=== PATIENT | female | born 1980 | race Caucasian/White ===

== ENCOUNTER 2024-03-06 18:52 | Emergency (ER) | payer OTHER, SELFPAY ==
[2024-03-06 19:15] VITALS: BP 154/87; PULSE 88; RESP 18; TEMP 36.6; O2SAT 97; BMI 31.3
--- NOTE | 2024-03-06 19:39 | EXP.UTC ---
Discharge Plan Disposition Patient Disposition: Home, Self-Care Condition: Good Prescriptions Prescriptions: New prednisone 10 mg tablet 10 mg PO BID 3 Days Qty: 6 0RF sulfamethoxazole-trimethoprim [Bactrim DS] 800-160 mg Tablet 1 tab PO BID Qty: 20 0RF Referrals Follow up/Referrals: Provider,Referral, MD [Primary Care Provider] - See instructions Activity Restrictions/Add. Instructions Additional Instructions/Restrictions: Drink plenty of fluids. Take tylenol or ibuprofen for pain or fever. Take the medications as directed. Follow up with your regular doctor. GO TO THE ER FOR ANY WORSENING SYMPTOMS The throat culture will take 3 days to complete. Please follow up to go over these results in 3 days. Clinical Impressions Clinical Impression: Pharyngitis, Exposure to methicillin resistant Staphylococcus aureus Instructions Patient Instructions: Sore Throat, DI for Pharyngitis/Tonsillopharyngitis -- Adult Discharge ED Provider: Kamron [place] [facility] General Stated complaint: sore throat Mode of Arrival: Ambulatory Source of Information: Patient Limitations: No Limitations Time Seen by Provider: 03/06/24 19:38 Description of Symptoms (Recalled from Triage Doc. by RN): Pt ate and drank after someone with staph infection. She has a sore throat. HEENT Symptoms (Recalled from RN notes): Yes Resp Symptoms (Recalled from RN notes): No Skin Symptoms (Recalled from RN notes): No MS Symptoms (Recalled from RN notes): No Functional Status (Recalled from RN notes): n/a History of Present Illness Provider Complaint: She states that she has had a sore throat and ear pain for the past 2 weeks. Her and her mother both had throat cultures that grew staph infection yesterday. She is concerned that she has the same thing. Related Data Previous Rx's Medication Instructions Recorded prednisone 10 mg tablet 10 mg PO BID 3 days #6 tabs 03/06/24 sulfamethoxazole 800 1 tab PO BID #20 tabs 03/06/24 mg-trimethoprim 160 mg tablet (Bactrim DS) Allergies Allergy/AdvReac Type Severity Reaction Status Date / Time acetaminophen [From [facility]] Allergy Mild Verified 03/06/24 19:38 hydrocodone [From [facility]CO] Allergy Mild Verified 03/06/24 19:38 Penicillins [PENICILLINS] Allergy Mild Verified 05/28/24 19:38 codeine Allergy Verified 03/06/24 19:39 Worker's Comp Is this a Worker's Comp case?: No [facility] Disclaimer: The information contained in this section may have been updated after the patient was seen, as this information can be updated by other users. Social History Smoking Status: Former smoker alcohol intake: never current occupational status: employed Travel in the last 8 weeks: None ROS Obtained: Yes All systems reviewed & no additional complaints except as documented Constitutional Constitutional: Denies chills and Denies fever(s) Eyes Eyes: Denies eye discharge ENT Ears, Nose, Mouth, and Throat: Reports as per HPI Cardiovascular Cardiovascular: Denies chest pain Respiratory Respiratory: Denies chest congestion and Reports cough Gastrointestinal Gastrointestingal: Reports nausea; Denies abdominal pain, constipation, cramping, diarrhea or vomiting Musculoskeletal Musculoskeletal: Denies arthralgias Integumentary/Breasts Skin/Breast: Denies rash Neurologic Neurologic: Denies paresthesias Physical Exam General General appearance: alert and in no apparent distress Head Head exam: atraumatic, normocephalic and normal inspection Eye Eye exam: Present normal appearance, PERRL and EOMI ENT ENT exam: Present mucous membranes moist and normal external ear exam Expanded ENT Exam TM/Canal exam: Bilateral TM: erythema and bulging Nose exam: Absent sinus tenderness Mouth exam: Present normal external inspection; Absent drooling Teeth exam: Present normal inspection Throat exam: Present tonsillar erythema, tonsillomegaly and tonsillar exudate Neck Neck exam: Present normal inspection, full ROM and trachea midline; Absent tenderness, meningismus or lymphadenopathy Chest Chest inspection: Present normal inspection and symmetric chest wall rise; Absent tenderness Respiratory Respiratory exam: Present normal lung sounds bilaterally; Absent respiratory distress, wheezes, stridor or accessory muscle use Cardiovascular Cardiovascular exam: Present regular rate and normal rhythm; Absent systolic murmur or diastolic murmur Abdominal Exam Abdominal exam: Present soft and normal bowel sounds; Absent distention, tenderness, guarding, rebound or rigidity Extremities Exam Extremities exam: Present normal inspection and normal capillary refill; Absent calf tenderness Back Exam Back exam: Present normal inspection and full ROM; Absent tenderness, CVA tenderness (R) or CVA tenderness (L) Neurological Exam Neurological exam: Present alert, oriented X3 and CN II-XII intact Psychiatric Psychiatric exam: Present normal affect and normal mood Skin Skin exam: Present warm, dry, intact and normal color Medical Decision Making Medical Records Medical records reviewed: No I reviewed the patient's medical records. Russ Inquiry Pt receiving controlled substance: No Vital Signs: 03/06/24 19:15 Temperature 97.9 F Temperature Source Oral Pulse Rate [Right Radial] 88 Respiratory Rate 18 Blood Pressure [Right Arm] 154/87 H Blood Pressure Mean [Right Arm] 109 Blood Pressure Source [Right Arm] Automatic Cuff Blood Pressure Position [Right Arm] Sitting 02 Sat by Pulse Oximetry 97 Oxygen Delivery Method Room Air
[2024-03-06] MEDS: SULFA/TRIMETHOPRIM 1 TABLET 1 EACH PO (19:50)
[2024-03-06 20:20] VITALS: BP 154/87; PULSE 88; RESP 18; TEMP 36.6; O2SAT 97
== END 2024-03-06 20:20 | disposition home or self-care (01) ==
PROVIDERS: Emergency Provider Nurse Practitioner Family
DX: J02.9 Acute pharyngitis, unspecified (principal); Z20.818 Contact with and (suspected) exposure to other bacterial communicable diseases
CPT/HCPCS: 87070; 99204; 99212; G0463

== ENCOUNTER 2024-09-02 10:46 | Emergency (ER) | payer OTHER, SELFPAY ==
--- OUTSIDE RECORDS SUMMARY | 2024-09-02 10:49 | XMS_ITS | Data Portability ---
Author Organization [facility] DAVID Cárdenas VIAN CLOSED Address [address] [place] [address] Care Team Providers Care Insurance Policy Issue Clerk Name Role Phone RADHA ALEXANDRE Ror Engineer CATHY ARTEAGA Primary Care Provider Assessment No assessment recorded. Plan of Treatment Reminders Order Date Submit Date Provider Last Modified By Organization Details Last Modified Time Details Appointments None recorded. Lab None recorded. Referral None recorded. Procedures None recorded. Surgeries None recorded. Imaging None recorded. Medication Orders minocycline 100 mg capsule 2023 024 [id number] [facility] [id number], [address] [place], [address], 4 15:52:33 fluconazole 150 mg tablet 2023 024 [facility] [id number], [address] [place], [address], 4 15:52:33 Patient TargetsNo targets recorded. Patient InstructionsNo instructions recorded. Reason for Referral None Reported. Procedures Surgical History Date Name Laterality Status Provider Name and Address Organization Details Recorded Time 4 Destruction BN Lesions completed RADHA GONZALES MD [address] [place] [address], [id number], [facility] 11/18/2023 17:28:41 Imaging Results None recorded. Procedure Notes None recorded. Medical Equipment None Reported. Allergies Allergen ID Allergen Name Allergen Category Reaction Reaction Severity Criticality Documentation Date Start Date Code Code System Note Provider Name and Address Organization Details Recorded Time [id number] Medicinal product containin g penicilli n and acting as antibacte rial agent (product) medicatio n Not available Not available Not available 11/18/2023 89453 [id number] SNOMED Leanne Ng [facility] 4 13:06:02 [id number] hydrocodo ne Not available Not available Not available Not available 11/18/2023 5489 RxNorm Leanne Ng [facility] 4 13:06:08 Medications Name Sig Start Date Stop Date Status Note LastModified by Organization Details LastModified Time fluconazole 150 mg tablet Take 1 tablet with sign of yeast infection 2023 active Not Available Not Available Not Avai lable minocycline 100 mg capsule Take 1 capsule twice a day by oral route. 2023 active Not Available Not Available Not Avai lable Vitals None Recorded Social History Question Answer Notes LastModified by Organizat ion Details LastModified Time Tobacco Smoking Status Smoker, Current Status Unknown Leanne Ng [facility] 11/18/2023 13:06:57 What Is Your Level Of Alcohol Consumption? None Information not available 11/18/2023 Sunscreen Use? No Informatio n not available 11/18/2023 Tanning Bed Use No Informati on not available 11/18/2023 What Was The Date Of Your Most Recent Tobacco Screening? 11/18/2023 Information not available 11/18/2023 Sex: Unknown Functional Status None recorded. Mental Status None recorded. Family History Relationship Description Onset Age of this Age Resolved Age Notes LastModified by Organization Details LastModified Time Paternal Aunt Malignant neoplasm of skin stahanasab Not available 11/18 13:06:49 Medical History Condition Response Other Skin Condition Y Gynecological HistoryNo gynecological history recorded. 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 L73.2 Health Concerns Section Related Observation LastModified by Organization Detai ls LastModified Time None Recorded Concern Status LastModified by Organization Details LastModified Time None Recorded Advance Directives Directive None Recorded Payers Encounter Date Sequence Insurance Name Policy Number Policy Wilson Covered Member ID Wilson Member ID Guarantor Name 11/18/2023 1 [facility] ([facility] Jerad Burch [id number] Arina Burch Notes Date Note Type Note Provider Name and Address Organization Details Recorded Time 11/18/2023 text/html 1. I think I hav e [email or web address]. - Location: Bilateral lower eyelids.- Duration: Four years.- Prior treatments: None mentioned.- REPORTS: Yellow/white spots under the eyes. Pt would like this treated. Is on cholesterol medicine per PCP.- Pt reports took 11 mo to see prior derm & was going to take another 11 mo to see her again & they were going to use a laser & it was going to be $700 (at [facility] in [place]).2. I have HS. - Location: Groin. Bilateral axillae. Bilateral IFM.- Duration: 20 years.- Current treatments: Clindamycin gel. BPO wash.- Prior treatments: PO Clindamycin, PO doxycycline (reports yeast infxn within a couple days)- REPORTS: Pt has been diagnosed with HS previously. 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 Pt would like to discuss oral medications for HS. RADHA GONZALES MD [address] [place], [address], [facility] 11/18/2023 17:34:37 OBGyn Episode No OBEpisode recorded.
--- OUTSIDE RECORDS SUMMARY | 2024-09-02 10:49 | XMS_ITS | Clinical Summary ---
Author Organization [facility] Address [address] [place] [address] Care Team Providers Care Setter Out Name Role Phone Unavailable Primary Care Provider Unavailabl e Allergies Active Allergy Reactions Criticality Noted Date Comments Codeine 03/03/2023 Penicillin 03/03/2023 Medications multivitamin capsule Take 1 capsule by mouth in the morning. Active Active Problems No known active problems Family History Medical History Relation Name Comments Diabetes Father Diabetes Maternal Grandfather Breast cancer Maternal Grandmother Colon cancer Maternal Grandmother Diabetes Maternal Grandmother Seizures Mother Diabetes Paternal Grandfather Diabetes Paternal Grandmother Pancreatic cancer Paternal Grandmother Relation Name Status Comments Father Maternal Grandfather Maternal Grandmother Mother Paternal Grandfather Paternal Grandmother Social History Tobacco Use Types Packs/Day Years Used Date Smoking Tobacco: Every Day Cigarettes Smokeless Tobacco: Never Alcohol Use Standard Drinks/Week Comments Not Currently 0 (1 standard drink = 0.6 oz pur e alcohol) Interpersonal Safety Answer Date Record ed Family or friends hurt you Not on file 10/28 Family or friends insult you Not on file Family or friends threaten you Not on file 0 10/28/2023 Family or friends scream or curse at you Not on file 10/28/2023 Housing Stability Answer Date Recorded Living situation today Not on file Living situation problems Not on file 2023 Food Insecurity Answer Date Recorded Food run out past 12 months Not on file 10/10 Food did not last past 12 months Not on file 10/28/2023 Employment Answer Date Recorded Help finding and keeping a job Not on file 0 10/28/2023 Family and Community Support Answer Tucker e Recorded Help with Day to Day Activities Not on file 10/28/2023 Feeling Lonely or Isolated Not on file 10/28 Educational Attainment Answer Date Jose Angel rded Speak language other than Ethiopian at home Not on file 10/28/2023 Want help with school or training Not on file 10/28/2023 Depression Answer Date Recorded PHQ-2 Risk Not on file 10/28/2023 Disabilities Answer Date Recorded Difficulty concentrating Not on file 024 Difficulty doing errands alone Not on file 0 10/28/2023 Substance Use Answer Date Recorded Used prescription meds for non-medical reasons N ot on file 10/28/2023 Used illegal drugs past 12 months Not on file 10/28/2023 Comments Unknown Sex and Gender Information Value Date Recorded Sex Assigned at Not on file Legal Sex Female 2:30 PM CDT Gender Identity Not on file Sexual Orientation Not on file Last Filed Vital Signs Vital Sign Reading Time Taken Comments Blood Pressure 130/89 03/03/2023 3:46 PM EDT Pulse 114 03/03/2023 3:46 PM EDT Temperature - - Respiratory Rate - - Oxygen Saturation - - Inhaled Oxygen Concentration - - Weight 96.2 kg (212 lb) 03/03/2023 3:46 PM EDT Height - - Body Mass Index - - Plan of Treatment Health Maintenance Due Date Last Done Comments Pneumococcal Vaccine: 0-64 Years (1 of 2 - PCV) 1987 Depression Screening (12+) 1994 HIV Screening 1997 Hepatitis C Screening 2000 DTAP/TDAP/TD VACCINES (1 - Tdap) 2001 Lipid Panel 2002 Pap Smear 2003 Breast Cancer Screening 2022 Tobacco Cessation Counseling and Screening (12+) 03/0303/03/2023 COVID-19 VACCINE ( - season) 2024 Influenza Vaccine (#1) 2024 Insurance DANNY Martinez [id number] [facility] CHOICE PLUS
--- OUTSIDE RECORDS SUMMARY | 2024-09-02 10:49 | XMS_ITS | Encounter Summary ---
Author Organization [facility] [employer] Address [address] [place] [address] Care Team Providers Care Java Software Engineer Name Role Phone Unavailable Primary Care Provider Unavailabl e Reason for Referral * Ultrasound (Routine) - Closed Specialty Diagnoses / Procedures Referred By Contac t Referred To Contact Gynecology Diagnoses Abnormal uterine bleeding (AUB) Procedures Ultrasound CREW CHIEF General Order Venessa Ley MD [address] [place] [address] Phone: tel: fax: Referral ID Status Reason Start Date Expiration Date Visits Re quested Visits Authorized [id number] Closed 03/03/2023 08/30/2023 1 1 Reason for Visit * Reason Comments Vaginal Bleeding * Ultrasound (Routine) - Closed Specialty Diagnoses / Procedures Referred By Contac t Referred To Contact Gynecology Diagnoses Abnormal uterine bleeding (AUB) Procedures Ultrasound CREW CHIEF General Order Venessa Ley MD [address] [place] [address] Phone: tel: fax: Referral ID Status Reason Start Date Expiration Date Visits Re quested Visits Authorized [id number] Closed 03/03/2023 08/30/2023 1 1 Encounter Details Date Type Department Care Team (Late st Contact Info) Description 03/03/2023 3:30 PM EDT Office Visit [facility] 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 - [facility] [address] [place] [address] Venessa Ley MD [address] [place] [address] Abnormal uterine bleeding (AUB) (Primary Dx) Social History Tobacco Use Types Packs/Day Years Used Date Smoking Tobacco: Every Day Cigarettes Smokeless Tobacco: Never Alcohol Use Standard Drinks/Week Comments Not Currently 0 (1 standard drink = 0.6 oz pur e alcohol) Comments Unknown Sex and Gender Information Value Date Recorded Sex Assigned at Not on file Legal Sex Female 2:30 PM CDT Gender Identity Not on file Sexual Orientation Not on file documented as of this encounter Last Filed Vital Signs Vital Sign Reading Time Taken Comments Blood Pressure 130/89 03/03/2023 3:46 PM EDT Pulse 114 03/03/2023 3:46 PM EDT Temperature - - Respiratory Rate - - Oxygen Saturation - - Inhaled Oxygen Concentration - - Weight 96.2 kg (212 lb) 03/03/2023 3:46 PM EDT Height - - Body Mass Index - - documented in this encounter Progress Notes * Venessa Ley MD - 03/03/2023 3:30 PM EDT Subjective: Arina Burch is a 42 y.o. female. Chief Complaint Patient presents with ??? Vaginal Bleeding I have reviewed and/or updated the following: Tobacco Allergies Meds Problems Med Hx Surg Hx Fam Hx Patient is a 42-year-old G3, P2 referred from Dr. Arita for menometrorrhagia. Consider ablation. She is status post tubal ligation. She is status post LEEP. She usually has menses that are regular lasting 5 to 6 days. She reports that in 2020 she had COVID. After that her periods were regular but began to last 10 to 14 days with clots. She did skip her periods October through December of this year. Her menses resumed in January and February and continued to be heavy. She is interested in endometrial ablation but has many questions about her hormone levels. She says that since COVID she has not been able to taste and her diet has been very poor. she also says she has been diagnosed with anemia. She has no other GI or CREW CHIEF symptoms. Today she is having an ultrasound. Her [id number] was negative. Endometrial biopsy 01/2023 showed disordered proliferative endometrium. TVUS--nl uterus and ovaries Review of Systems See hpi Objective: BP 130/89 Pulse 114 Wt 96.2 kg (212 lb) LMP 02/25/2023 Physical Exam Constitutional: Appearance: Normal appearance. Genitourinary: Genitourinary Comments: Bimanual NT and no masses. No cervical motion tenderness on exam. Uterus isnssc and nt. Adnexa are unremarkable with nonpalpable ovaries. Neurological: General: No focal deficit present. Mental Status: She is alert and oriented to person, place, and time. Psychiatric: Mood and Affect: Mood normal. Behavior: Behavior normal. No results found for this or any previous visit. Procedures Assessment: menometrorrhagia Hx anemia Considering ablation Desires hormonal eval 1. Abnormal uterine bleeding (AUB) Plan: labs--tsh, fsh, cbc ,E, hgba1c Will f/u by phone/ Considering OR Need current pap from [facility] Diagnoses and all orders for this visit: Abnormal uterine bleeding (AUB) - Ultrasound CREW CHIEF General Order; Future - Estradiol (E2); Future - Follicle stimulating hormone (FSH); Future - TSH W/REFLEX TO FT4; Future - CBC With Diff/Platelet; Future - Hemoglobin A1c; Future No follow-ups on file. documented in this encounter Miscellaneous Notes * Result Encounter Note - Venessa Ley MD - 03/03/2023 3:30 PM EDT Notify pt that hormones for menopause and thyroid are normal. Pt considering ablation. Has she decided? F/u for precert and schedule if she desires * Result Encounter Note - Jose Ramirez CMA - 03/03/2023 3:30 PM EDT Patient informed of results. Will discuss levels further with Dr. Ley documented in this encounter Plan of Treatment Not on file documented as of this encounter Procedures Procedure Name Priority Date/Time Associated Diagnosis Comments US CREW CHIEF GENERAL ORDER Routine 03/17/2023 3:18 PM EDT Abnormal uterine bleeding (AUB) CBC WITH DIFF/PLATELET Routine 03/03/2023 4:43 PM EDT Abnormal uterine bleeding (AUB) HEMOGLOBIN A1C Routine 03/03/2023 4:43 PM EDT Abnormal uterine bleeding (AUB) TSH W/REFLEX TO FT4 Routine 03/03/2023 4 :43 PM EDT Abnormal uterine bleeding (AUB) ESTRADIOL (E2) Routine 03/03/2023 4:43 PM EDT Abnormal uterine bleeding (AUB) FOLLICLE STIMULATING HORMONE (FSH) Routine 03/03/2023 4:43 PM EDT Abnormal uterine bleeding (AUB) documented in this encounter Results * Ultrasound CREW CHIEF General Order (03/17/2023 3:18 PM EDT) Anatomical Region Laterality Modality Pelvis Ultrasound Narrative 03/17/2023 3:18 PM EDT Indication ======== aub Assessment LMP on 02/25/2023 Method ====== Transvaginal ultrasound examination. View: Sufficient Uterus ====== Uterus: Visualized Uterus position: mid-position Cervix details: Nabothian cysts, normal Uterus length 71.10 mm Uterus width 44.40 mm Uterus height 43.30 mm Uterus Vol 71.6 cm? Endometrial thickness, total 9.4 mm Right Ovary ========= Rt ovary: Visualized Rt ovary D1 25.00 mm Rt ovary D2 23.20 mm Rt ovary D3 20.00 mm Rt ovary Vol 6.1 cm? Left Ovary ======== Lt ovary: Visualized Lt ovary D1 31.80 mm Lt ovary D2 19.20 mm Lt ovary D3 23.80 mm Lt ovary Vol 7.6 cm? Cul de Sac ========= Normal Impression ========= uterus is midplane lie and appears wnl 2 nabothian cysts noted unremarkable appearing ovaries Coding ====== Code: 64967 Description: Ultrasound, non- uterus, transvaginal Procedure Note Venessa Ley MD - 03/17/2023 Indication ======== aub Assessment LMP on 02/25/2023 Method ====== Transvaginal ultrasound examination. View: Sufficient Uterus ====== Uterus:Visualized Uterus position:mid-position Cervix details:Nabothian cysts, normal Uterus qzgahh51.10 mm Uterus width44.40 mm Uterus .30 mm Uterus Vol71.6 cm? Endometrial thickness, total9.4 mm Right Ovary ========= Rt ovary:Visualized Rt ovary D125.00 mm Rt ovary D223.20 mm Rt ovary D320.00 mm Rt ovary Vol6.1 cm? Left Ovary ======== Lt ovary:Visualized Lt ovary D131.80 mm Lt ovary D219.20 mm Lt ovary D323.80 mm Lt ovary Vol7.6 cm? Cul de Sac ========= Normal Impression ========= uterus is midplane lie and appears wnl 2 nabothian cysts noted unremarkable appearing ovaries Coding ====== Code:83971 Description:Ultrasound, non- uterus, transvaginal us Venessa Ley MD [facility] US ORDERABLES Final Result * Hemoglobin A1c (03/03/2023 4:43 PM EDT) Hemoglobin A1c 5.6 %Hb [facility] Comment: Reference Range: [place] Diabetes Association (ADA) Guidelines: <5.7: Decreased risk for diabetes 5.7 - 6.4: Increased risk for diabetes >6.4: Ongoing Hyperglycemia of any cause <7.0: Glycemic control for adults with diabetes Estimated Average Glucose 114 mg/dL [facility] Blood VENOUS STRUCTURE / Unknown 03/03/2023 4:43 PM EDT 03/03/2023 Narrative [facility] - 03/06/2023 5:06 PM EDT Performed at: ??02 - [facility] [address] [place] [address] ??[id number] Glaze Handler: Ren Webber MD, Phone: ??[phone] Venessa Ley MD LAB BLOOD ORDERABLES Fin al Result [facility] * (ABNORMAL) CBC With Diff/Platelet (03/03/2023 4:43 PM EDT) WBC 12.1(H) 3.4 - 10.8 x10E3/uL [facility] RBC 4.81 3.77 - 5.28 x10E6/uL [facility] Hemoglobin 13.4 11.1 - 15.9 g/dL [facility] Hematocrit 40.4 34.0 - 46.6 % [facility] MCV 84 79 - 97 fL [facility] MCH 27.9 26.6 - 33.0 pg [facility] MCHC 33.2 31.5 - 35.7 g/dL [facility] RDW 15.9(H) 11.7 - 15.4 % [facility] Platelets 359 150 - 450 x10E3/uL [facility] % Neutros 62 Not Estab. % [facility] % Lymphs 30 Not Estab. % [facility] % Monos 6 Not Estab. % [facility] % Eos 1 Not Estab. % [facility] % Baso 1 Not Estab. % [facility] # Neutros 7.6(H) 1.4 - 7.0 x10E3/uL [facility] # Lymphs 3.7(H) 0.7 - 3.1 x10E3/uL [facility] # Monos 0.7 0.1 - 0.9 x10E3/uL [facility] # Eos 0.1 0.0 - 0.4 x10E3/uL [facility] Baso (Absolute) 0.1 0.0 - 0.2 x10E3/uL [facility] % Immature Grans 0 Not Estab. % [facility] # Immature Grans 0.0 0.0 - 0.1 x10E3/uL [facility] Blood VENOUS STRUCTURE / Unknown 03/03/2023 4:43 PM EDT 03/03/2023 Narrative [facility] - 03/06/2023 5:06 PM EDT Performed at: ??01 - [facility] ??[id number] Glaze Handler: Leandro Colón PhD, Phone: ??[phone] Venessa Ley MD LAB BLOOD ORDERABLES Fin al Result Performing Organization Address [facility] de Phone Number [facility] * TSH W/REFLEX TO FT4 (03/03/2023 4:43 PM EDT) TSH 0.942 0.450 - 4.500 uIU/mL [facility] Blood VENOUS STRUCTURE / Unknown 03/03/2023 4:43 PM EDT 03/03/2023 Narrative [facility] - 03/06/2023 5:06 PM EDT Performed at: ??01 - [facility] ??[id number] Glaze Handler: Leandro Colón PhD, Phone: ??[phone] Venessa Ley MD LAB BLOOD ORDERABLES Fin al Result Performing Organization Address [facility] de Phone Number [facility] * Follicle stimulating hormone (FSH) (03/03/2023 4:43 PM EDT) FSH 9.4 mIU/mL [facility] Comment: ?Adult Female: ?Follicular phase ?3.5 - ??12.5 ?Ovulation phase ? 4.7 - ??21.5 ?Luteal phase ?1.7 - ?? 7.7 ?Postmenopausal ? 25.8 - 134.8 Blood VENOUS STRUCTURE / Unknown 03/03/2023 4:43 PM EDT 03/03/2023 Narrative [facility] - 03/06/2023 5:06 PM EDT Performed at: ??01 - [facility] [address], [place], [place] ??[id number] Glaze Handler: Leandro Colón PhD, Phone: ??[phone] us Venessa Ley MD LAB BLOOD ORDERABLES Fin al Result [facility] * Estradiol (E2) (03/03/2023 4:43 PM EDT) Estradiol 65.1 pg/mL [facility] Comment: ?Adult Female: ?Follicular phase ?? 12.5 - ?? 166.0 ?Ovulation phase ?85.8 - ?? 498.0 ?Luteal phase ? 43.8 - ?? 211.0 ?Postmenopausal ? <6.0 - ?54.7 ?1st trimester ? 215.0 - >4300.0 Martha ECLIA methodology Blood VENOUS STRUCTURE / Unknown 03/03/2023 4:43 PM EDT 03/03/2023 Narrative [facility] - 03/06/2023 5:06 PM EDT Performed at: ??01 - [facility] [address] ??[id number] Glaze Handler: Leandro Colón PhD, Phone: ??[phone] us Venessa Ley MD LAB BLOOD ORDERABLES Fin al Result [facility] documented in this encounter Visit Diagnoses Diagnosis Abnormal uterine bleeding (AUB)- Primary documented in this encounter
--- OUTSIDE RECORDS SUMMARY | 2024-09-02 10:49 | XMS_ITS | Referral Summary ---
Author Organization [facility] [employer] Address [address] [place] [address] Care Team Providers Care Class A Regional Drivers Name Role Phone Unavailable Primary Care Provider Unavailabl e Allergies Active Allergy Reactions Criticality Noted Date Comments Codeine 03/03/2023 Penicillin 03/03/2023 Medications multivitamin capsule Take 1 capsule by mouth in the morning. Active Active Problems No known active problems Social History Tobacco Use Types Packs/Day Years [...] Jose Angel rded Speak language other than Slovak at home Not on file 10/28/2023 Want [...] Mass Index - - Plan of Treatment Not on file Insurance [facility]
[2024-09-02 11:25] VITALS: BP 123/73; PULSE 78; RESP 19; TEMP 36.6; O2SAT 98; BMI 35.3
[2024-09-02 11:38] LABS: Apearance,Urine Clear (Clear); Color,Urine Yellow (Yellow)
[2024-09-02 11:39] LABS: Bilirubin,Urine Negative (Negative); Blood, Urine Negative (Negative); Glucose,Urine (UA) Negative (Negative); Ketones,Urine Negative (Negative); PH,Urine 5.5 (5.0-8.5); Protein,Urine Negative (Negative); UTC Leukocyte Esterase,Urine Negative (Negative); UTC Nitrate,Urine Negative (Negative); Urobilinogen,Urine 0.2 EU/dl (0.2)
--- NOTE | 2024-09-02 11:44 | ED_ITS ---
Discharge Plan Disposition Patient Disposition: Home, Self-Care Condition: Good Prescriptions Prescriptions: New nitrofurantoin monohyd/m-cryst [Macrobid] 100 mg capsule 100 mg PO Q12H 7 Days Qty: 14 0RF Rx Instructions: must administer with a meal/food phenazopyridine [Pyridium] 200 mg tablet 200 mg PO Q8H 2 Days Qty: 6 0RF fluconazole 150 mg tablet 150 mg PO Q3D Qty: 2 0RF Referrals Follow up/Referrals: Provider,Referral, MD [Primary Care Provider] - See instructions Activity Restrictions/Add. Instructions Additional Instructions/Restrictions: *Increase fluids. Water not Soda or Tea *Start antibiotic immediately and be sure to take as ordered for the FULL length of time although you should start to see improvement over the next 48 hours *Pyridium as needed Remember this medication will turn your urine . This is normal but it will stain what ever it gets on *You should not use Pyridium for more than 48 hours. If so , follow up with your primary physician to review urine culture and ensure that antibiotic is adequate for infection *Be SURE to follow up anytime for new or worsening symptoms with your family doctor. AND in 48 hours for urine culture results with your family doctor, if you do not have a doctor then you may call back to the [facility] for urine culture results and further treatment. We do recommend that you choose and establish care with a Primary Care Physician. ?AND follow up with them ?in 10-14 days to repeat UA to ensure infection is resolved and blood no longer present *Be sure to let your PCP know that we sent urine cultures from the [facility] so they can follow up to ensure that you area the on the correct antibiotic Call your doctor office and make appointment for 48 hours (2 days from today) ?to follow up and get the results of your urine culture and further treatment Follow up with your Family Doctor if symptoms do not improve Clinical Impressions Clinical Impression: UTI symptoms Instructions Patient Instructions: Nitrofurantoin, Phenazopyridine Print Language Print Language: Irish Discharge ED Provider: Cyndy Garcia [facility] HPI General Stated complaint: uti/bladder infection Mode of Arrival: Ambulatory Source of Information: Patient Limitations: No Limitations Time Seen by Provider: 09/02/24 11:44 Description of Symptoms (Recalled from Triage Doc. by RN): PATIENT C/O BACK PAIN AND STOMACH PAIN X 3 DAYS HEENT Symptoms (Recalled from RN notes): No Resp Symptoms (Recalled from RN notes): No Skin Symptoms (Recalled from RN notes): No MS Symptoms (Recalled from RN notes): No Functional Status (Recalled from RN notes): WNL History of Present Illness Provider Complaint: Patient states that she thinks she may have a UTI States that she has been having achy like pain in her kidneys and pressure in her lower abdomen like she gets when she has a UTI States that these are the exact symptoms she has with a UTI so she came in to get checked reports had gallbladder removed 20+ years ago Related Data Previous Rx's ?Medication ?Instructions ?Recorded fluconazole 150 mg tablet 150 mg PO Q3D 2 doses #2 tabs 09/02/24 nitrofurantoin 100 mg PO Q12H 7 days #14 caps 09/02/24 monohydrate/macrocrystals 100 mg capsule (Macrobid) phenazopyridine 200 mg tablet 200 mg PO Q8H pain 2 days #6 tabs 09/02/24 (Pyridium) Allergies Allergy/AdvReac Type Severity Reaction Status Date / Time acetaminophen (From [facility]) Allergy Mild Verified 03/06/24 19:38 hydrocodone (From [facility]) Allergy Mild Verified 03/06/24 19:38 Penicillins (PENICILLINS) Allergy Mild Verified 03/06/24 19:38 codeine Allergy Verified 03/06/24 19:39 Worker's Comp Is this a Worker's Comp case?: No [facility] Disclaimer: The information contained in this section may have been updated after the patient was seen, as this information can be updated by other users. Medical History (Updated 09/02/24 @ 11:55 by Cyndy Garcia APRN) Depression Anxiety Anemia Urinary tract infection History of gastroesophageal reflux (GERD) COPD (chronic obstructive pulmonary disease) Hyperlipidemia Surgical History (Updated 09/02/24 @ 11:39 by Iman Feng RN) History of cholecystectomy History of tubal ligation Social History (Updated 03/06/24 @ 19:50 by Kamron Dodson APRN) Smoking Status: Former smoker alcohol intake: never current occupational status: employed ROS Obtained: Yes All systems reviewed & no additional complaints except as documented and Yes Systems reviewed as appropriate & no additional complaints except as documented Constitutional Constitutional: Reports system reviewed and no additional complaints, except as documented, Reports as per HPI, Denies body ache, Denies chills, Denies fatigue and Denies fever(s) ENT Ears, Nose, Mouth, and Throat: Reports system reviewed and no additional complaints, except as documented and Reports as per HPI Cardiovascular Cardiovascular: Reports system reviewed and no additional complaints, except as documented and Reports as per HPI Respiratory Respiratory: Reports system reviewed and no additional complaints, except as documented and Reports as per HPI Gastrointestinal Gastrointestingal: Reports system reviewed and no additional complaints, except as documented, as per HPI and abdominal pain (pressure like pain no pain at this time) Genitourinary Female Genitourinary: Reports system reviewed and no additional complaints, except as documented, Reports as per HPI, Reports flank pain, Reports urinary frequency and Reports urinary urgency Musculoskeletal Musculoskeletal: Reports system reviewed and no additional complaints, except as documented, Reports as per HPI and Reports back pain (achy like feeling in her kidney area ) Endocrine Endocrine: Denies fatigue Physical Exam General General appearance: alert and in no apparent distress ENT ENT exam: Present normal exam, normal oropharynx, mucous membranes moist and TM's normal bilaterally Chest Chest inspection: Present normal inspection and symmetric chest wall rise Respiratory Respiratory exam: Present normal lung sounds bilaterally; Absent respiratory distress or wheezes Cardiovascular Cardiovascular exam: Present regular rate, normal rhythm and normal heart sounds Abdominal Exam Abdominal exam: Present soft and normal bowel sounds; Absent distention or tenderness Back Exam Back exam: Present other Back 1 view image: 2 1. achy like pain like she has had before with UTI Neurological Exam Neurological exam: Present alert, oriented X3 and normal gait Medical Decision Making Medical Records Screening: Per USPSTF and CDC recommendations, given the prevalence of disease in our region, it is our hospital?s policy to screen for HIV and viral Hepatitis for all patients aged 18 and over and those with ongoing risk factors. Russ Inquiry Pt receiving controlled substance: No Russ was queried for this patient: No Vital Signs: 09/02/24 11:25 Temperature 97.8 F Temperature Source Oral Pulse Rate [Left Brachial] 78 Respiratory Rate 19 Blood Pressure [Left Arm] 123/73 Blood Pressure Mean [Left Arm] 89 Blood Pressure Source [Left Arm] Automatic Cuff Blood Pressure Position [Left Arm] Sitting 02 Sat by Pulse Oximetry 98 Oxygen Delivery Method Room Air Lab Data Lab results reviewed: Yes I reviewed the patient's lab results. Lab Results 09/02/24 11:17: Urine Color Yellow, Urine Appearance Clear, Urine pH 5.5, Ur Specific [place] 1.010, Urine Protein Negative, Urine Glucose (UA) Negative, Urine Ketones Negative, Urine Blood Negative, Urine Nitrate Negative, Urine Bilirubin Negative, Urine Urobilinogen 0.2, Ur Leukocyte Esterase Negative Orders (Tests/Meds): ORDERS Category Date Time Status Urine Culture Stat Micro 09/02/24 11:17 Received Medical Decision Narrative: Urine negative however patient persistant that these are the symptoms she has with UTI discussed transfer to the ED and she declined will start on Macrobid and send urine for culture
[2024-09-02 11:55] VITALS: BP 123/73; PULSE 78; RESP 19; TEMP 36.6; O2SAT 98
--- NOTE | 2024-09-05 13:57 | PC.NURSE ---
NOTIFIED PATIENT OF URINE CULTURE RESULTS AND THAT THE ORGANISM IS SENSITIVE TO CURRENT ANTIBIOTIC. PATIENT STATES SHE IS NOT FEELING BETTER. PATIENT ADVISED TO FOLLOW UP WITH PCP AND POSSIBLY HAVE HER URINE RECHECKED. PATIENT VERBALIZED UNDERSTANDING
== END 2024-09-02 11:58 | disposition home or self-care (01) ==
PROVIDERS: Emergency Provider Nurse Practitioner
DX: N39.0 Urinary tract infection, site not specified (principal)
CPT/HCPCS: 81003; 87086; 87088; 87186; 99213; G0381